=== PATIENT | male | born 1980 | race African-American/Black ===

== ENCOUNTER 2024-05-01 15:20 | Emergency (ER) | payer OTHER ==
[~2024-05-01] VITALS: Ht 182.9 cm; Wt 100.0 kg
[~2024-05-01 15:20] MED LIST: CEPHALEXIN500 M1 PO; CLEOCIN HCL300 MG PO; METHYLPREDNISOLO4 M1 PO
[2024-05-01] MEDS ORDERED: methylPREDNISolone SOD SUCC 125 MG/2 ML VIAL IV ONE (15:45)
[2024-05-01] MEDS ORDERED: diphenhydrAMINE HCL 50 MG/ML VIAL IV ONE (15:45)
[2024-05-01] MEDS ORDERED: FAMOTIDINE 20 MG/ 2 ML VIAL IV ONE (15:45)
[2024-05-01] MEDS ORDERED: PEPCID20 MG PO (17:33)
[2024-05-01] MEDS ORDERED: PREDNISONE20 MG PO (17:33)
[2024-05-01 17:42] VITALS: BP 138/101
== END 2024-05-01 17:42 | disposition other institution, planned readmission (95) ==
LOC: ED 15:20
DX: R07.89 Other chest pain (principal); T39.315A Adverse effect of propionic acid derivatives, initial encounter; Z88.6 Allergy status to analgesic agent; Z79.899 Other long term (current) drug therapy
CPT/HCPCS: 96374; 96375; 99283-25; J1200; J2919